=== PATIENT | male | born 1970 | race Caucasian/White ===

== ENCOUNTER → 2016-11-02 | Outpatient (CLI) | payer MEDICAID ==
--- NOTE | 2016-11-09 08:38 | RADIOLOGY REPORT PS360 ---
DIG MAMM-DX GEORGETTE W/AVWS W/CAD COMPARISON: None INDICATION: Gynecomastia ORDERING PHYSICIAN: Victorino Appiah MD PATIENT AGE: 46 years TECHNIQUE: Standard images performed with bilateral spot compression views FINDINGS: Increased density is present in the retroareolar region bilaterally left more so than right consistent with bilateral gynecomastia. There was some asymmetric nodular opacity present in the lateral left periareolar region which did appear to compress out on spot compression view. No discrete mass or malignant appearing microcalcification. IMPRESSION: Gynecomastia BI-RADS CATEGORY: 2_Benign RECOMMENDED FOLLOWUP: As clinically warranted. If there is a discrete palpable nodule then ultrasound may be of further value. (A letter has been sent to the patient regarding results of the study.)
== END ==
LOC: RAD 12:49
DX: N62 Hypertrophy of breast (principal)
CPT/HCPCS: G0204